=== PATIENT | male | born 1975 ===

== ENCOUNTER → 2018-11-16 15:34 | Outpatient (CLI) | payer OTHER | END | disposition home or self-care (01) | LOC: LAB 15:34 | DX: J11.1 Influenza due to unidentified influenza virus with other respiratory manifestations (principal); R05 Cough ==

== ENCOUNTER 2019-04-20 14:47 | Outpatient (CLI) | payer OTHER | END 2019-04-20 14:57 | disposition home or self-care (01) | LOC: LAB 14:47 | DX: J11.1 Influenza due to unidentified influenza virus with other respiratory manifestations (principal); R05 Cough ==

== ENCOUNTER 2021-01-20 18:08 | Emergency (ER) | payer OTHER ==
[~2021-01-20] VITALS: Ht 180.3 cm; Wt 136.1 kg
[2021-01-21] MEDS ORDERED: MONTELUKAST SODI4 M1 PO (09:36)
== END 2021-01-20 20:43 | disposition home or self-care (01) ==
LOC: ER 18:08
DX: D69.49 Other primary thrombocytopenia (principal)

== ENCOUNTER 2021-01-21 09:25 | Emergency (ER) | payer OTHER ==
[~2021-01-21] VITALS: Ht 180.3 cm; Wt 136.1 kg
[2021-01-21] MEDS ORDERED: MONTELUKAST SODI4 M1 PO (09:36)
== END 2021-01-21 17:38 ==
LOC: ER 09:25
DX: D69.49 Other primary thrombocytopenia (principal); A90 Dengue fever [classical dengue]; R06.02 Shortness of breath; Z20.822 Contact with and (suspected) exposure to COVID-19

== ENCOUNTER 2021-01-23 08:08 | Outpatient (CLI) | payer OTHER ==
[~2021-01-23 08:08] MED LIST: MONTELUKAST SODI4 M1 PO
== END 2021-01-23 08:09 | disposition home or self-care (01) ==
LOC: LAB 08:08
PROVIDERS: ATTEND General Practice
DX: D69.6 Thrombocytopenia, unspecified (principal)